=== PATIENT | female | born 1960 | race Hispanic/Latino ===

== ENCOUNTER 2024-09-12 07:35 | Emergency (ER) | payer BC ==
[~2024-09-12] VITALS: Ht 157.5 cm; Wt 95.3 kg
--- NOTE | 2024-09-12 08:07 | EKG ---
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
--- NOTE | 2024-09-12 08:17 | ERN ---
ED Note History of Present Illness Stated Complaint: GBW, DIZZINESS HX OF ANEMIA Chief Complaint: Weakness Time Seen by MD: 07:35 Dictation: This is a case of 64-year-old female with a past medical history of anemia, high cholesterol, hypertension who presented to the ED with the complaints of generalized body weakness, dizziness, mild diffuse headache, shortness of breath on exertion, nausea since 3 days. She notes experiencing similar symptoms in the past. She denies fever, chills, cold, cough, sore throat, vomiting, chest pain, palpitations, abdominal pain, burning sensation when urinating, paresthesias/tingling/numbness sensations in upper and lower extremities. Allergies: Coded Allergies: No Known Drug Allergies (Unverified Allergy, Unknown, 09/12/24) Past Medical History Past Medical History: Anemia, High Cholesterol, Hypertension Surgical History: Hysterectomy, Cholecystectomy Review of System Dictation CONSTITUTIONAL: No chills, no fever, no weakness, no diaphoresis, no malaise. HEAD/FACE: No signs of trauma. EENT: No eye pain, no blurred vision, no tearing, no double vision, no ear pain, no ear discharge, no nose pain, no nasal congestion, no throat pain, no throat swelling, no mouth pain. RESPIRATORY: No cough, no orthopnea, SOB on exertion, no stridor, no wheezing. CARDIOVASCULAR: No chest pain, no edema, no palpitations, no syncope. GASTROINTESTINAL/ABDOMINAL: No abdominal pain, no constipation, no diarrhea, nausea no vomiting. GENITOURINARY: No abnormal discharge, no dysuria, no frequent urination, no hematuria. No complaints of pain in the genitals. MUSCULOSKELETAL: Lower back pain, no gout, no joint pain, no joint swelling, no muscle pain, no muscle stiffness, no neck pain. INTEGUMENTARY: No change in color, no change in hair/nails, no dryness, no lesion, no lumps, no rash. NEUROLOGICAL/PSYCH: No anxiety, not depressed, no emotional problem, mild diffuse headache, no numbness, no pre-existing deficit, no history of seizures, no tremors, no weakness. HEMATOLOGIC/LYMPHATIC: no history of blood clots, no apparent bleeding, no bruising, glands not swollen. All Systems Negative, Except as Noted. Initial Vital Sign VS Vital Signs Date Time Temp Pulse Resp B/P (MAP) Pulse Ox O2 Delivery O2 Flow Rate FiO2 09/12/24 07:37 98.2 80 20 177/82 99 Room Air 0 09/12/24 08:21 21 Physical Exam Dictation Physical Exam Dictation VITAL SIGNS: Reviewed. GENERAL APPEARANCE: Alert, oriented x3, no acute distress, obese. HEAD AND FACE: Non-traumatic. EYES: PERRL, pink conjunctivas, eyelid no trauma, anterior chamber clear. EARS: Pinnas intact and no signs of trauma or erythema. Ear canals clear and no discharge. TMs no erythema. NOSE: No discharge, no bleeding. OROPHARYNX: Mouth normal, teeth no caries, tongue pink. Pharynx clear, no erythema. Tonsils no exudates, no abscesses noted. Mucous membrane moist. NECK: Supple, non-tender, no thyromegaly, no masses, no JVD, no bruits. BREAST: Deferred. CHEST: No tenderness, no crepitus, no paradoxical movement, no retractions. LUNGS: Clear, well-ventilated, symmetric, no rales, no wheezing, no rhonchi, no stridor, good breath sounds bilaterally. HEART: Regular rate, regular rhythm, no murmur, no gallops. VASCULAR: No peripheral edema. ABDOMEN: Soft, positive bowel sounds, nondistended, no guarding, nontender, no rebound, no masses no hepatomegaly, no splenomegaly, no Almanzar's sign, no hernias. RECTAL: Deferred. GENITAL: Deferred. NEUROLOGICAL: Normal speech, gross motor function intact, gross sensory function intact. MUSCULOSKELETAL: Neck nontender, full range of motion, back nontender, full range of motion. EXTREMITIES: Nontender, full range of motion. SKIN: Color pink, dry, no turgor, no rash, no lacerations, no abrasions, no contusions. LYMPHATICS: Deferred. Results (Laboratory/Radiology) Laboratory/Radiology Laboratory Tests Test 09/12/24 07:45 White Blood Count 5.6 K/uL (4.8-10.8) Red Blood Count 2.87 MIL/uL (4.00-5.50) L Hemoglobin 7.6 g/dL (12.0-16.0) L Hematocrit 24.2 % (36-48) L Mean Corpuscular Volume 84.3 fL (79-99) Mean Corpuscular Hemoglobin 26.5 pg (27.0-33.0) L Mean Corpuscular Hemoglobin Concent 31.4 g/dL (32.0-36.0) L Red Cell Distribution Width 17.6 % (11.0-15.5) H Platelet Count 312 K/uL (130-400) Mean Platelet Volume 10.6 fL (7.5-10.5) H Immature Granulocyte % (Auto) 0.5 % (0-1) Neutrophils (%) (Auto) 64.1 % (40.0-77.0) Lymphocytes (%) (Auto) 24.6 % (21.0-51.0) Monocytes (%) (Auto) 6.2 % (3.0-13.0) Eosinophils (%) (Auto) 3.9 % (0.0-8.0) Basophils (%) (Auto) 0.7 % (0.0-5.0) Neutrophils # (Auto) 3.6 K/uL (1.8-7.7) Lymphocytes # (Auto) 1.4 K/uL (1.0-4.8) Monocytes # (Auto) 0.4 K/uL (0.1-1.0) Eosinophils # (Auto) 0.22 K/uL (0.00-0.70) Basophils # (Auto) 0.04 K/uL (0.00-0.20) Absolute Immature Granulocyte (auto 0.03 K/uL (0-1) Nucleated Red Blood Cells 0.5 % (0.0-0.19) H Urine Color YELLOW (YELLOW) Urine Appearance CLEAR (CLEAR) Urine pH 6.0 (5.0-8.0) Urine Specific [place] 1.020 (1.001-1.031) Urine Protein NEGATIVE mg/dL (NEGATIVE) Urine Glucose (UA) NEGATIVE mg/dL (NEGATIVE) Urine Ketones NEGATIVE mg/dL (NEGATIVE) Urine Occult Blood NEGATIVE (NEGATIVE) Urine Nitrate NEGATIVE (NEGATIVE) Urine Bilirubin NEGATIVE mg/dL (NEGATIVE) Urine Urobilinogen 0.2 mg/dL (0.2-1.0) Urine Leukocyte Esterase 25 [place]/uL (NEGATIVE) H Urine RBC 0-1 /HPF (0-1) Urine WBC 6-10 /HPF (0-1) H Urine Squamous Epithelial Cells FEW /HPF (0-2) Urine Bacteria RARE /HPF (None Seen) Sodium Level 143 mmol/L (136-145) Potassium Level 3.6 mmol/L (3.5-5.1) Chloride Level 105 mmol/L (101-111) Carbon Dioxide Level 29 mmol/L (21-32) Blood Urea Nitrogen 14 mg/dL (7-18) Creatinine 0.7 mg/dL (0.5-1.0) Glomerular Filtration Rate Calc 97 mL/min (>90) Random Glucose 113 mg/dL (70-105) H Total Calcium 8.6 mg/dL (8.5-10.1) Total Creatine Kinase 62 U/L (21-232) Troponin I High Sensitivity 4.7 ng/L (4-50) ED Course ED Course Orders Procedure Category Date Status Time Vital Signs Per CPOE 09/12/24 Transmitted Routine 07:40 Oxygen By Nc/Pulse Ox CPOE 09/12/24 Transmitted 07:40 Iv Insertion CPOE 09/12/24 Transmitted 07:40 Cbc With Differential LAB 09/12/24 Complete 07:40 Cardiac Panel LAB 09/12/24 Complete 07:40 12 Lead Ekg Tracing- EKG 09/12/24 Complete Technical 07:40 Ct Head/Brain W/O CT 09/12/24 Resulted Contrast 07:57 Urinalysis LAB 09/12/24 Complete W/Microscopic 07:57 Basic Metabolic Panel LAB 09/12/24 Complete 08:05 Chest 1vw RAD 09/12/24 Taken 08:35 Culture Urine LACEY 09/12/24 Logged 09:10 Vital Signs Date Time Temp Pulse Resp B/P (MAP) Pulse Ox O2 Delivery O2 Flow Rate FiO2 09/12/24 08:21 98.2 80 20 123/56 100 Room Air* 0 21 09/12/24 07:37 98.2 80 20 177/82 99 Room Air 0 Medical Decision Making MDM MDM Potential differential diagnoses include: Electrolyte imbalance ID Chronic anemia Pneumonia Stroke Assessment: We will order CBC to rule any anemia, infections and to evaluate the overall health of the patient. CMP was ordered in order to assess various electrolytes, kidney function, liver function ,protein levels and blood glucose levels, a CT of the head to rule out any bleed I will re-evaluate the patient after treatment and diagnostic exams have returned to determine whether they require further testing, can be safely discharged home, or need admission for further treatment and evaluation. Given the social determinants of health affecting care, including literacy, access to medical care, prescription drug management, and [id number] drugs, I will ensure that treatment plans are tailored accordingly. Revaluation : I spoke to the patient told him I do not have any signs of requiring that she needs transfusion she is not acutely bleeding she had had a hysterectomy years ago. I did tell her that she may need outpatient hormone endocrine evaluation. And/or bone marrow biopsy and/or colonoscopy for to rule out cancer. But she has not had any black or bleeding or bloody stools. No changes in symptomatology over the last weeks or months stable for outpatient management and with the urine. Can treat for UTI. Additionally although she is not have any fevers chills dysuria abdominal pain no other questions Disposition: DX & DISP Disposition: Discharge Departure Impression: Primary Impression: Anemia Condition: Stable Scripts Cephalexin Monohydrate (Keflex) 500 Mg Cap 250 MG PO QID for 3 Days, #28 CAP Prov: JOSETTE HENRY MD 09/12/24 SETH SANDOVAL MD Sep 12, 2024 08:16 JOSETTE HENRY MD Sep 12, 2024 09:16
--- NOTE | 2024-09-12 08:20 | NUR ---
CT HEAD PATIENT LEFT FOR SCAN.
--- NOTE | 2024-09-12 08:25 | NUR ---
RETURNED FROM CT SCAN.
[2024-09-12 08:29] LABS: BASOPHILS # (AUTO) 0.04 K/uL (0.00-0.20); BASOPHILS % (AUTO) 0.7 % (0.0-5.0); EOSINOPHILS # (AUTO) 0.22 K/uL (0.00-0.70); EOSINOPHILS % (AUTO) 3.9 % (0.0-8.0); HEMATOCRIT 24.2 % (36-48); IMMATURE GRANULOCYTE ABSOLUTE 0.03 K/uL (0-1); LYMPHOCYTES # (AUTO) 1.4 K/uL (1.0-4.8); LYMPHOCYTES % (AUTO) 24.6 % (21.0-51.0); MEAN CORPUSCULAR HEMOGLOBIN 26.5 pg (27.0-33.0); MEAN CORPUSCULAR HGB CONC 31.4 g/dL (32.0-36.0); MEAN CORPUSCULAR VOLUME 84.3 fL (79-99); MONOCYTES # (AUTO) 0.4 K/uL (0.1-1.0); MONOCYTES % (AUTO) 6.2 % (3.0-13.0); NEUTROPHILS # (AUTO) 3.6 K/uL (1.8-7.7); NEUTROPHILS % (AUTO) 64.1 % (40.0-77.0); NUCLEATED RED BLOOD CELLS 0.5 % (0.0-0.19); PLATELET COUNT (AUTO) 312 K/uL (130-400); RED BLOOD CELL COUNT(AUTO) 2.87 MIL/uL (4.00-5.50); RED CELL DISTRIBUTION WIDTH 17.6 % (11.0-15.5); WHITE BLOOD COUNT (AUTO) 5.6 K/uL (4.8-10.8)
--- NOTE | 2024-09-12 08:30 | HMCIMG ---
CT HEAD/BRAIN W/O CONTRAST HISTORY: Generalized weakness COMPARISON: None TECHNIQUE: Multiple sequential axial images of the head were obtained from the base of the skull through vertex. Patient was not given contrast through intravenous route. FINDINGS: The ventricles and extraventricular CSF spaces are nondilated for patient's age. There is no midline shift, mass effect or herniation. No acute intracranial bleed is seen. Visualized portion of the paranasal sinuses are grossly within normal limits. IMPRESSION: 1. No acute intracranial bleed is seen. CT was performed with one or more following dose reduction techniques: automated exposure control, adjustment of the mA and kv according to patient's size, or use of a iterative reconstruction technique.
[2024-09-12 08:38] LABS: CREATININE 0.7 mg/dL (0.5-1.0); POTASSIUM 3.6 mmol/L (3.5-5.1)
[2024-09-12 09:07] LABS: APPEARANCE,URINE CLEAR (CLEAR); BACTERIA,URINE RARE /HPF (None Seen); BILIRUBIN,URINE NEGATIVE (NEGATIVE); COLOR,URINE YELLOW (YELLOW); GLUCOSE, URINE (UA) NEGATIVE (NEGATIVE); KETONES,URINE NEGATIVE (NEGATIVE); LEUKOCYTE ESTERASE ,URINE 25 Leu/uL (NEGATIVE); MUCUS,URINE RARE LPF (None Seen); NITRATE,URINE NEGATIVE (NEGATIVE); OCCULT BLOOD,URINE NEGATIVE (NEGATIVE); PROTEIN,URINE NEGATIVE (NEGATIVE); RBC,URINE 0-1 /HPF (0-1); SQUAMOUS EPITHELIAL CELL,UR FEW /HPF (0-2); UROBILINOGEN,URINE 0.2 mg/dL (0.2-1.0)
[2024-09-12] MEDS ORDERED: CEPH500B PO (09:15)
[2024-09-12 09:19] VITALS: BP 108/46; PULSE 69; RESP 18; TEMP 98.2; O2SAT 99
--- NOTE | 2024-09-12 10:09 | HMCIMG ---
CHEST 1VW HISTORY: Dizziness COMPARISON: None FINDINGS: A frontal projection of the chest was obtained. No acute pulmonary infiltrates is seen. The heart is normal in size. Prominent interstitial markings are seen. Degenerative changes are seen No evidence of aortic calcification is seen. IMPRESSION: 1. No acute pulmonary infiltrate is seen.
== END 2024-09-12 09:27 | disposition home or self-care (01) ==
LOC: EDH 07:35
DX: D64.9 Anemia, unspecified (principal); E78.00 Pure hypercholesterolemia, unspecified; I10 Essential (primary) hypertension; Z90.49 Acquired absence of other specified parts of digestive tract; Z90.710 Acquired absence of both cervix and uterus
CPT/HCPCS: 36415; 70450; 71045; 80048; 81001; 82550; 84484; 85025; 87086; 93005; 99284